=== PATIENT | female | born 1965 | race Caucasian/White ===

== ENCOUNTER → 2017-12-18 14:30 | Outpatient (CLI) | payer SELFPAY ==
--- NOTE | 2017-12-18 14:30 | DT_ITS ---
This patient was seen during an EMR downtime December 15, 2017 - December 22, 2017. This patient may have a combination of paper and electronic documentation or all paper documentation. All documentation is viewable within the e-chart portion of [employer] for each patient visit.
--- NOTE | 2017-12-18 14:30 | EMB_PTH ---
PATIENT: JABARI MORGAN LOC: [facility] U#:[id number] AGE/SX: 59/F ROOM: RE12/18/[address]: Dr. Moe Ricks MD : [id number] BED: DIS: SPEC #: [id number] RECD: 12/18/17 17:06 STATUS: PHILLIP PAGE #: [id number] CANDIE: 12/18/17 14:[address]: Moe Ricks DEPT: SURGICAL PATHOLOGY RECD BY: Jenny Novak Tissues: Endometrium, NOS Procedures: Surgery Specimen Level IV HEADER OPERATION: Endometrial biopsy PRE-OP DIAGNOSIS: N92.6 TISSUE SUBMITTED: Endometrial biopsy MICROSCOPIC DIAGNOSIS Endometrial biopsy: Proliferative endometrium. SARA:britney 12/22/17 MICROSCOPIC DESCRIPTION Slides are reviewed. GROSS DESCRIPTION Received in fixative is one container labeled with the patient's name and designated EM biopsy. The specimen consists of multiple fragments of hemorrhagic soft tissue that in aggregate measure 2 x 1 x 0.2 cm. The specimen is totally submitted in one cassette. / SJ:rg 12/19/17 TC:4 CPT: 02226
[2017-12-30 14:05] LABS: HPV Reflexed? NOT INDICATED
== END ==
PROVIDERS: Visit Provider Obstetrics & Gynecology
DX: Z12.4 Encounter for screening for malignant neoplasm of cervix (principal)
CPT/HCPCS: 88175; 88305; G0145